=== PATIENT | male | born 1955 ===

== ENCOUNTER 2024-01-09 07:24 | Outpatient (CLI) | payer OTHER | END 2024-01-09 07:33 | disposition home or self-care (01) | LOC: TOM 07:24 | PROVIDERS: ATTEND Internal Medicine Gastroenterology | DX: K57.92 Diverticulitis of intestine, part unspecified, without perforation or abscess without bleeding (principal); R19.5 Other fecal abnormalities; C18.9 Malignant neoplasm of colon, unspecified; K59.00 Constipation, unspecified ==